=== PATIENT | female | born 2000 | race American Indian/Alaskan Native ===

== ENCOUNTER 2021-06-03 23:16 | Emergency (ER) | payer OTHER ==
[2021-06-04] MEDS ORDERED: traMADol 50 MG TAB PO ONE (02:12)
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
[2021-06-04 03:49] VITALS: BP 128/83
== END 2021-06-04 04:28 | disposition home or self-care (01) ==
LOC: ED 23:16
DX: S16.1XXA Strain of muscle, fascia and tendon at neck level, initial encounter (principal); V89.2XXA Person injured in unspecified motor-vehicle accident, traffic, initial encounter; Y93.89 Activity, other specified; Y92.89 Other specified places as the place of occurrence of the external cause; Y99.8 Other external cause status
CPT/HCPCS: 72040; 99283